=== PATIENT | male | born 1960 | race Caucasian/White ===

== ENCOUNTER 2018-01-01 08:26 | Emergency (ER) | payer SELFPAY ==
--- NOTE | 2018-01-01 09:15 | ER Document Report ---
ED Neuro Symptoms/Deficit - General Chief Complaint: Facial Droop Stated Complaint: VOMITING,NAUSEA Time Seen by Provider: 01/01/18 09:04 Notes: The patient is a 57-year-old male, past medical history hypertension (not on any medications for years), presents with left facial droop, ataxia, nausea and vomiting that started when he woke up at 06:30 am. His last known normal was at 23:00 last night. EMS provided him with 4 mg IV Zofran and his nausea improved. He said that he feels like the room is spinning and it is worse when he quickly stands up. Patient denies any tick bites, history of herpes, fevers , headache, focal arm/leg weakness, numbness, tingling, chest pain, shortness of breath, abdominal goff, difficulty swallowing or blurry vision. TRAVEL OUTSIDE OF THE [place] IN LAST 30 DAYS: No - Related Data Allergies/Adverse Reactions: No Known Allergies Allergy (Unverified 01/01/18 08:42) Past Medical History - General Information source: Patient - Social History Smoking Status: Former Smoker Chew tobacco use (# tins/day): No Frequency of alcohol use: None Drug Abuse: None Family History: Reviewed & Not Pertinent Patient has suicidal ideation: No Patient has homicidal ideation: No - Past Medical History Cardiac Medical History: Reports: Hx Hypertension - non compliant with medications Renal/ Medical History: Denies: Hx Peritoneal Dialysis Review of Systems - Review of Systems Notes: REVIEW OF SYSTEMS: CONSTITUTIONAL: -fevers, -chills EENT: -eye pain, -difficulty swallowing, -nasal congestion CARDIOVASCULAR: -chest pain, -syncope. RESPIRATORY: -cough, -SOB GASTROINTESTINAL: -abdominal pain, -nausea, -vomiting, -diarrhea GENITOURINARY: -dysuria, -hematuria MUSCULOSKELETAL: -back pain, -neck pain SKIN: -rash or skin lesions. HEMATOLOGIC: -easy bruising or bleeding. LYMPHATIC: -swollen, enlarged glands. NEUROLOGICAL: -altered mental status or loss of consciousness, -headache, - neurologic symptoms PSYCHIATRIC: -anxiety, -depression. ALL OTHER SYSTEMS REVIEWED AND NEGATIVE. Physical Exam - Vital signs Vitals: Temp Pulse Resp BP Pulse Ox 97.3 F 58 L 18 162/86 H 97 01/01/18 08:33 01/01/18 08:33 01/01/18 08:33 01/01/18 08:33 03/22/18 08:33 - Notes Notes: PHYSICAL EXAMINATION: GENERAL: Well-appearing, well-nourished and in no acute distress. HEAD: Atraumatic, normocephalic. EYES: Pupils equal round and reactive to light, extraocular movements intact, sclera anicteric, conjunctiva are normal. ENT: nares patent, oropharynx clear without exudates. Moist mucous membranes. NECK: Normal range of motion, supple without lymphadenopathy LUNGS: Breath sounds clear to auscultation bilaterally and equal. No wheezes rales or rhonchi. HEART: Regular rate and rhythm without murmurs ABDOMEN: Soft, nontender, normoactive bowel sounds. No guarding, no rebound. No masses appreciated. EXTREMITIES: Normal range of motion, no pitting or edema. No cyanosis. NEUROLOGICAL: Left facial droop, not able to wrinkle left side of forehead, able to puff both cheeks, cannot close left eye. Normal speech. 5/5 strength in all 4 extremities. Past-pointing present in left arm. Ataxic gait. PSYCH: Normal mood, normal affect. SKIN: Warm, Dry, normal turgor, no rashes or lesions noted. Course - Re-evaluation Re-evalutation: Patient with signs of Munguia's palsy with left-sided facial droop and inability to wrinkle his forehead. However, he is also having ataxia and positive posterior cerebellar signs on physical exam. He is not a TPA candidate if this is a CVA due to greater than 4.5 hours of symptoms prior to presentation. NIHSS would be a 2. Patient is concerned about his hospital bill and is not sure if his insurance kicked in yet. He said that he would only want an MRI and blood work at this time due to the possible cost. MRI does not show any acute infarctions. 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 With these MRI results, patient's symptoms most consistent with Munguia's palsy and vertigo and not with an acute CVA. Provided him with steroids for the Munguia's Palsy, meclizine for vertigo, amlodipine for his untreated high blood pressure and instructions to begin baby aspirin due to his prior infarct. Also counseled him about smoking cessation. Given very strict return precautions and he understands. He will follow-up with a PMD and Neurologist. 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 No MR evidence of acute ischemic change, acute intracranial hemorrhage, mass effect, or mid line shift. Inflammatory changes paranasal sinuses. Discharge - Discharge Clinical Impression: Left-sided Munguia's palsy, Vertiginous syndrome Condition: Stable Disposition: HOME, SELF-CARE Additional Instructions: [place]' Palsy You have been diagnosed as having Munguia's Palsy -- a paralysis of certain muscles of the face. It's caused by a temporary paralysis of the nerve which controls the muscles. The cause is unknown, but it's thought to be caused by a virus in most cases. The physician's exam shows that this is NOT a stroke. Munguia's Palsy usually gets better by itself. There is no cure. Sometimes cortisone-type medication is given to decrease nerve swelling. This problem is usually temporary, lasting about three weeks. During that time, you must protect the eye from injury (because the eyelid muscles often do not cover it). Ointment or a patch may be necessary. Be sure to follow up as instructed, and call the doctor at once if new symptoms arise. Report any eye pain, decreasing vision or double vision, or any numbness or weakness outside the face area. Vertigo You have experienced an episode of vertigo -- a whirling dizziness which may be accompanied by nausea and vomiting or staggering. Vertigo is often caused by an irritation of the inner ear, in which case it is called labyrinthitis. It can also be a symptom of a degenerating inner ear, nerve damage, or brain injury. Your physician has evaluated you to determine whether any further testing is necessary. Vertigo is often treated with dramamine or meclizine. These medications are helpful, but stronger medication may be needed if you are vomiting. Rest in bed. You should not drive or operate machinery until completely better. It may take one to three weeks for recovery. If there are new symptoms, such as decreased hearing or vision, severe headache, weakness or faintness, or confusion, call the physician. Prescriptions: Amlodipine Besylate [Norvasc 5 mg Tablet] 5 mg PO DAILY #30 tablet Meclizine HCl 25 mg PO Q8H PRN #14 tablet PRN Reason: Prednisone [Deltasone 20 mg Tablet] 3 tab PO DAILY 6 Days tablet Forms: Elevated Blood Pressure Referrals: JEREMIE AKBAR MD [NO LOCAL MD] - Follow up as needed PATRICIA AMATO DO [ACTIVE STAFF] - Follow up as needed
[2018-01-01 09:22] LABS: ABSOLUTE EOSINOPHILS # (AUTO) 0.2 10^3/uL (0.0-0.6); ABSOLUTE LYMPHOCYTES (AUTO) 1.1 10^3/uL (0.5-4.7); ABSOLUTE MONOCYTES (AUTO) 0.9 10^3/uL (0.1-1.4); ABSOLUTE NEUT (AUTO) 9.7 10^3/uL (1.7-8.2); BASOPHILS % (AUTO) 0.2 % (0-2); EOSINOPHILS % (AUTO) 1.6 % (0-6); HEMATOCRIT 44.3 % (37.9-51.0); HEMOGLOBIN 15.1 g/dL (13.5-17.0); LYMPHOCYTES % (AUTO) 9.6 % (13-45); MEAN CORPUSCULAR HEMOGLOBIN 30.6 pg (27.0-33.4); MEAN CORPUSCULAR HGB CONC 34.2 g/dL (32.0-36.0); MEAN CORPUSCULAR VOLUME 90 fl (80-97); MONOCYTES % (AUTO) 7.6 % (3-13); PLATELET COUNT 261 10^3/uL (150-450); RED BLOOD COUNT 4.95 10^6/uL (4.35-5.55); RED CELL DISTRIBUTION WIDTH 13.7 % (11.5-14.0); TOTAL CELLS COUNTED % (AUTO) 100 %
[2018-01-01 09:30] LABS: INTERNATIONAL RATION (INR) 0.97; PARTIAL THROMBOPLASTIN TIME 26.9 SEC (23.5-35.8); PROTHROMBIN TIME 13.6 SEC (11.4-15.4)
[2018-01-01 09:39] LABS: ALANINE AMINOTRANSFERASE 31 U/L (21-72); ALBUMIN 4.2 g/dL (3.5-5.0); ALKALINE PHOSPHATASE 70 U/L (38-126); ANION GAP 7 (5-19); ASPARTATE AMINO TRANSFERASE 25 U/L (17-59); BILIRUBIN,DIRECT 0.4 mg/dL (0.0-0.4); BILIRUBIN,TOTAL 0.8 mg/dL (0.2-1.3); BLOOD UREA NITROGEN 17 mg/dL (7-20); CALCIUM 9.5 mg/dL (8.4-10.2); CARBON DIOXIDE 30 mmol/L (22-30); CHLORIDE 105 mmol/L (98-107); CREATINE KINASE 174 U/L (55-170); GLUCOSE 104 mg/dL (75-110); POTASSIUM 3.9 mmol/L (3.6-5.0); SODIUM 142.2 mmol/L (137-145); TOTAL PROTEIN 6.6 g/dL (6.3-8.2)
[2018-01-01 09:54] LABS: TROPONIN I < 0.012 ng/mL
--- NOTE | 2018-01-01 11:54 | RADIOLOGY REPORT (SQ) ---
EXAM DESCRIPTION: MRI HEAD WITHOUT COMPLETED DATE/TIME: 01/01/2018 11:42 am REASON FOR STUDY: left facial droop, ataxia COMPARISON: None. TECHNIQUE: Multiplanar imaging includes non-contrasted T1, T2, FLAIR, and diffusion with ADC map seq uences. Images stored on PACS. LIMITATIONS: None. FINDINGS: ANATOMY: No anomalies. Normal vascular flow voids. Pituitary fossa normal. CSF SPACES: Normal in size and contour. No hemorrhage. CEREBRUM: Old infarct, right posterior frontal deep periventricular white matter involving the solution make up operator al capsule and centrum semiovale. No MR evidence of acute ischemic change, acute intracranial hemorrhage, mass effect, or midline shift . POSTERIOR FOSSA: No signal alteration. No hemorrhage. No edema, masses or mass effect. Internal roderick tory canals, cerebello-pontine angles, mastoids normal. DIFFUSION IMAGING: Negative for acute or sub-acute infarction. ORBITS: No masses. Globes normal. PARANASAL SINUSES: Complete opacification right maxillary sinus, near complete opacification bilater al posterior ethmoid air cells and left sphenoid sinus. No mastoid air cell fluid or middle ear fluid. OTHER: No other significant finding. 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 No MR evidence of acute ischemic change, acute intracranial hemorrhage, mass effect, or mid line shif t. Inflammatory changes paranasal sinuses EVIDENCE OF ACUTE STROKE: No TECHNICAL DOCUMENTATION: JOB ID: [id number]- All Rights Reserved Reading location - IP/workstation name: [email or web address]
[2018-01-01] MEDS ORDERED: ASPIRIN 325 MG TABLET PO ONE (12:15)
[2018-01-01] MEDS ORDERED: PREDNISONE 20 MG TABLET PO ONE (12:15)
[2018-01-01] MEDS ORDERED: MECLIZINE HCL 25 MG TABLET PO ONE (12:16)
[2018-01-01 12:44] VITALS: BP 152/88
== END 2018-01-01 12:45 | disposition home or self-care (01) ==
LOC: ER 08:26
DX: G51.0 Bell's palsy (principal); H81.90 Unspecified disorder of vestibular function, unspecified ear; Z87.891 Personal history of nicotine dependence
CPT/HCPCS: 99284; 36415; 82553; 82550; 85025; 85610; 85730; 80053; 84484; 70551; J7512

== ENCOUNTER 2018-01-03 04:18 | Emergency (ER) | payer SELFPAY ==
[2018-01-03] MEDS ORDERED: OXYCODONE-ACETAMINOPHEN 5-325 MG TABLET PO ONE (04:27)
[2018-01-03] MEDS ORDERED: PROMETHAZINE HCL 25 MG TABLET PO ONE (04:27)
--- NOTE | 2018-01-03 04:30 | ER Document Report ---
ED ENT - General Stated Complaint: NOSE BLEED Time Seen by Provider: 01/03/18 04:21 Notes: Patient is a 57-year-old male comes emergency department for chief complaint of nosebleed. He states he is bleeding heavily from the right side of his nose, he felt some bleeding back and he coughed out some blood as well. Symptoms lasted for about 15 minutes, resolved about 50 minutes prior to arrival, he comes by EMS. He states he was started on amlodipine 5 mg for hypertension, he has been taking this, he states he thinks his blood pressure still elevated. He states after the bleeding and trapezius starting to get a headache but did not have a headache beforehand. He denies any chest pain, shortness of breath, or any other current symptoms. He states he is currently taking prednisone for recent diagnosis of Munguia's palsy as well. at bedside. TRAVEL OUTSIDE OF THE [place] IN LAST 30 DAYS: No - Related Data Allergies/Adverse Reactions: No Known Allergies Allergy (Unverified 01/01/18 08:42) Past Medical History - General Information source: Patient - Social History Smoking Status: Never Smoker Drug Abuse: None Lives with: Family Family History: Reviewed & Not Pertinent - Past Medical History Cardiac Medical History: Reports: Hx Hypertension - non compliant with medications Renal/ Medical History: Denies: Hx Peritoneal Dialysis Review of Systems - Review of Systems Constitutional: No symptoms reported EENT: See HPI Cardiovascular: No symptoms reported Respiratory: No symptoms reported Gastrointestinal: No symptoms reported Genitourinary: No symptoms reported Male Genitourinary: No symptoms reported Musculoskeletal: No symptoms reported Skin: No symptoms reported Hematologic/Lymphatic: No symptoms reported Neurological/Psychological: No symptoms reported Physical Exam - Vital signs Vitals: Temp Pulse Resp BP Pulse Ox 98.1 F 65 18 169/98 H 97 01/03/18 04:31 01/03/18 04:31 01/03/18 04:31 01/03/18 04:31 01/03/18 04:31 - General General appearance: Alert, Anxious In distress: None - HEENT Head: Normocephalic, Atraumatic Eyes: Normal Conjunctiva: Normal Extraocular movements intact: Yes Eyelashes: Normal Pupils: PERRL Nasal: Other - Small amount of dried epistaxis in the right nostril, otherwise unremarkable nasal exam Mouth/Lips: Normal Mucous membranes: Normal Pharynx: Normal. No: Blood in hypopharynx Neck: Normal - Respiratory Respiratory status: No respiratory distress Breath sounds: Normal. No: Decreased air movement, Wheezing - Cardiovascular Rhythm: Regular. No: Tachycardia Heart sounds: Normal auscultation, S1 appreciated, S2 appreciated - Abdominal Inspection: Normal Tenderness: Nontender. No: Tender - Back Back: Normal, Nontender. No: Tender - Extremities General upper extremity: Normal inspection, Nontender, Normal strength, Normal temperature General lower extremity: Normal inspection, Nontender, Normal strength, Normal temperature. 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 Patient is somewhat hypertensive although he is also anxious. Patient stating is starting to get a mild headache after the bleed, he is provided medication for this, symptoms resolved. On reevaluation patient states that he had a little bit of discomfort in his chest when he swallowed the pills, once an EKG. EKG shows no T-wave inversions or ST segment changes in consecutive leads, is consistent with some left axis deviation. I explained to patient that this is not a complete cardiac evaluation, recommended full cardiac workup, he declined. Patient has been monitored for over an hour with no rebleeding. Discussed with patient, he is on amlodipine 5 mg, he states he used to be on amlodipine 5 mg and lisinopril 10 mg for his blood pressure to be controlled controlled, he was given a dose of lisinopril here, will be provided with this as prescription as well. Patient does not have primary care, he was referred to them. Discussed epistaxis, follow-up and return precautions, patient and family state understanding and agreement. - Vital Signs Vital signs: Temp Pulse Resp BP Pulse Ox 98.1 F 65 18 169/98 H 97 01/03/18 04:31 01/03/18 04:31 01/03/18 04:31 01/03/18 04:31 01/03/18 04:31 Discharge - Discharge Clinical Impression: Epistaxis Condition: Stable Disposition: HOME, SELF-CARE Additional Instructions: There is a significant chance of re-bleeding following a nosebleed. Proper care makes this less likely. Do not touch the nose for 24 hours. Do not blow the nose forcefully for one week. After 24 hours, gently apply the bacitracin ointment to both nostrils with the Q-tips or tip of a finger, three times a day, for one week. It's normal to have a bloody mucous discharge for a few days. If active bleeding recurs, blow all the blood from the nose, then sit quietly and pinch the nose as firmly as possible for 10 minutes. If this does not stop the bleeding, return for further care. Persons with frequent nosebleeds should avoid aspirin (unless prescribed for another reason). Humidity in the bedroom, and petroleum jelly applied to the nostrils at night may help. Please follow-up with the primary care for referral, call either or both to set this up (see referrals). Return for any other concerning symptoms including severe headache, chest pain, passing out, vomiting, severe rebleeding, or any other concerning symptoms. Prescriptions: Lisinopril 10 mg PO DAILY #30 tablet Forms: Return to Work Referrals: [facility] [Provider Group] - Follow up in 3-5 days [facility] [Provider Group] - Follow up in 3-5 days
[2018-01-03] MEDS ORDERED: LISINOPRIL 10 MG TABLET PO ONE (05:44)
[2018-01-03 06:14] VITALS: BP 164/102
--- NOTE | 2018-01-03 09:12 | EKG REPORT ---
SEVERITY:- OTHERWISE NORMAL ECG - SINUS RHYTHM BORDERLINE LEFT AXIS DEVIATION : Confirmed by: Valerie Amaya 03-Jan-2018 09:11:02
== END 2018-01-03 06:13 | disposition home or self-care (01) ==
LOC: ER 04:18
DX: R04.0 Epistaxis (principal); F41.9 Anxiety disorder, unspecified; I10 Essential (primary) hypertension; R51 Headache; G51.0 Bell's palsy; R09.89 Other specified symptoms and signs involving the circulatory and respiratory systems
CPT/HCPCS: 93005; 93010; 99283

== ENCOUNTER → 2018-03-04 | Outpatient (CLI) | payer OTHER | LOC: CCC 10:28 | DX: R53.83 Other fatigue (principal); R41.3 Other amnesia | CPT/HCPCS: 36415; 82607; 84443; 86592 ==